=== PATIENT | male | born 1965 | race Caucasian/White ===

== ENCOUNTER 2018-10-15 19:54 | Observation (INO) ==
[2018-10-15] MEDS ORDERED: ASPIRIN PO ONE (20:01)
[2018-10-15 20:18] LABS: BASO# 0.02 X1000 (0.0-0.2); BASO% 0.3 % (0.0-0.8); EOS# 0.16 X1000 (0.0-0.7); EOS% 2.4 % (0.0-10.0); HEMOGLOBIN 14.3 g/dL (14.0-18.0); IMM GRAN# 0.02 X1000 (0.0-0.04); IMM GRAN% 0.3 % (0.0-0.5); LYMPH# 2.98 X1000 (1.2-3.4); LYMPH% 44.4 % (20.5-51.1); MCH 30.4 PG (27-31); MCV 89.4 FL (81-99); MONO# 0.42 X1000 (0.11-0.59); MONO% 6.3 % (1.7-9.3); MPV 9.8 FL (7.4-10.4); NEUT# 3.11 X1000 (1.4-6.5); NEUT% 46.3 % (42.2-75.2); PLT 158 X1000 (130-400); RDW 12.9 % (11.5-14.5); WBC 6.71 X1000 (4.8-10.8)
[2018-10-15 20:45] LABS: AGAP 12; ALBUMIN 4.1 g/dL (3.5-5.0); ALKALINE PHOSPHATASE 76 U/L (32-122); BUN 13 mg/dL (8-22); CALCIUM 8.8 mg/dL (8.8-10.2); CHLORIDE 106 mmol/L (98-107); COSMO 284; CREATININE 0.7 mg/dL (0.7-1.2); ESTIMATED GFR > 60; GLUCOSE 138 mg/dL (70-104); GOT 18 U/L (10-34); GPT 37 U/L (10-44); POTASSIUM 3.6 mmol/L (3.5-5.1); SODIUM 141 mmol/L (136-145); TCO2 23 mmol/L (25-35); TOTAL PROTEIN 7.1 g/dL (6.3-8.3)
--- NOTE | 2018-10-15 20:51 | Diag Imaging Result Doc PS360 ---
EXAM: CHEST-2 VIEWS INDICATION: chest pain TECHNIQUE: 2 views COMPARISON: 12/12/2016 FINDINGS: The lungs are grossly clear. There is no discrete pleural fluid collection or pneumothorax. The cardiomediastinal silhouette and central vasculature are grossly unremarkable. IMPRESSION: No evidence of acute pathology by plain radiograph. Electronically signed by Donal Briscoe 10/15/2018 8:48 PM
[2018-10-15 21:56] LABS: I-STAT CREATININE 0.8 mg/dL (0.6-1.3)
--- NOTE | 2018-10-15 21:57 | Diag Imaging Result Doc PS360 ---
EXAM: CT ANGIOGRM PULMONARY ARTERIES INDICATION: elevated D dimer TECHNIQUE: This exam was performed using automated exposure control, adjustment of mA or kV according to patient size, and/or use of iterative reconstruction technique. COMPARISON: None. FINDINGS: The contrast bolus is suboptimal. The aorta is better opacified than the pulmonary arteries. This may decrease sensitivity for detection of small pulmonary emboli in distal branches. However, no discrete filling defects are identified to indicate pulmonary embolism on this study. There is no evidence of aortic dissection or aneurysm. There is no cardiomegaly. There is no evidence of significant mediastinal or hilar lymphadenopathy. There is a 1 cm noncalcified nodule at the left lung apex. It is nonspecific. It could represent an inflammatory nodule. There appears to be scarring in the region and this could also represent nodular scarring. However, follow-up based on Fleischner Society criteria with an initial CT in 3 months is recommended. The lungs are clear, otherwise. There is no airspace consolidation. There are no pleural fluid collections and no pneumothorax. Limited views of the upper abdomen reveals mild hepatic steatosis. The upper abdomen is grossly unremarkable, otherwise. IMPRESSION: 1.Nonspecific 1 cm noncalcified nodule at the left lung apex. Follow-up based on Fleischner Society criteria is recommended. 2.Suboptimal pulmonary artery contrast bolus. However, no discrete filling defect to indicate pulmonary embolism are identified as imaged. Electronically signed by Donal Briscoe 10/15/2018 9:55 PM
--- NOTE | 2018-10-15 23:35 | EKG Report ---
Test Performed on : 10/15/2018 8:03:07 PM Test Reason : chest pain Blood Pressure : / mmHG Vent. Rate : 090 BPM Atrial Rate : 090 BPM P-R Int : 154 ms QRS Dur : 090 ms QT Int : 350 ms P-R-T Axes : 048 028 019 degrees QTc Int : 428 ms Normal sinus rhythm. Possible Left atrial enlargement Nonspecific ST abnormality Abnormal ECG When compared with ECG of 24-JUN-2007 00:30, ST now depressed in Anterior leads Unconfirmed Result
--- NOTE | 2018-10-15 23:35 | EKG Report ---
Test Performed on : 10/15/2018 11:14:03 PM Test Reason : sp Blood Pressure : / mmHG Vent. Rate : 079 BPM Atrial Rate : 079 BPM P-R Int : 160 ms QRS Dur : 088 ms QT Int : 372 ms P-R-T Axes : 051 009 -22 degrees QTc Int : 426 ms Normal sinus rhythm. Possible Left atrial enlargement ST & T wave abnormality, consider anterior ischemia Abnormal ECG When compared with ECG of 15-OCT-2018 20:03, (Unconfirmed) T wave inversion more evident in Inferior leads T wave inversion now evident in Anterior leads Unconfirmed Result
[2018-10-16] MEDS ORDERED: LOVENOX 1 MG/KG SUBQ ONE (00:40)
[2018-10-16] MEDS ORDERED: LOVENOX ONE (00:44)
[2018-10-16] MEDS ORDERED: LOVENOX SUBQ ONE (00:46)
--- NOTE | 2018-10-16 00:47 | PROVIDER DOCUMENTATION ---
This chart was entered by Sarahy Macdonald Scribe, acting as scribe for Norah Easton MD. HPI-Chest Pain - General Chief Complaint: Chest Pain Stated Complaint: CHEST PAIN Time Seen by Provider: 10/15/18 20:08 Source: patient Allergies/Adverse Reactions: Patient Allergies Allergy/AdvReac Type Severity Reaction Status Date / Time No Known Allergies Allergy Verified 04/18/17 12:03 Home Medications: Home Medication List Medication Instructions Recorded Confirmed Last Taken Type Diclofenac Sodium 1 tab PO BID 12/11/16 09/23/18 09/23/18 08:00 History Hydrocodone/Acetaminophen [[place] 1 ea PO Q6H PRN #15 tab 09/19/18 09/23/18 09/23/18 11:00 Rx 10-325 Tablet] Ondansetron Odt [Zofran 4 mg Odt] 4 mg PO Q6H PRN PRN #20 tab 09/19/18 09/23/18 Unknown Rx Tamsulosin [Flomax] 0.4 mg PO BID #20 cap 09/19/18 09/23/18 09/23/18 08:00 Rx Hydrocodone/Acetaminophen [[place] 1 ea PO Q4H PRN PRN #10 tab 09/23/18 Unknown Rx 7.5-325 Tablet] Oxybutynin [Ditropan] 1 - 2 tab PO TID #15 tab 09/23/18 Unknown Rx - History of Present Illness-CP Nature of Presenting Problem: 53 y/o male presents to ED with L sided chest pain radiating into neck and jaw and diaphoresis onset 3 weeks ago and worsening today. Pt reports he had a normal EKG in office with PCP recently. Pt states he had episodes of similar pain a few months ago. Pt reports breathing exacerbates his pain. Pt states he has family hx heart disease. Pt is alert and oriented. Location: reports: other (L sided) Chest Pain Radiation: reports: jaw, neck Quality of Pain: reports: burning Severity in ED: moderate Onset/Duration: other (3 weeks ago) Timing: still present, getting worse Context/Activities at Onset: reports: none Modifying Factors: worse with: palpation Associated Symptoms: reports: diaphoresis Nitro Today/Relief: no nitro taken today Aspirin Treatment Today: 325 mg x 1, provided by ED Prior Chest Pain/Cardiac Workup: reports: other (EKG with PCP) Similar Symptoms Previously?: Yes Recently Seen Here or By Another Healthcare Provider: No Review of Systems - Adult - REVIEW OF SYSTEMS - ADULT Constitutional: denies: chills, fever Eyes: reports: no symptoms reported Ears, Nose, Mouth & Throat: reports: no symptoms reported Cardiovascular: reports: chest pain. denies: palpitations Respiratory: denies: cough, shortness of breath Gastrointestinal: denies: abdominal pain, diarrhea, nausea, vomiting Genitourinary: reports: no symptoms reported Musculoskeletal: denies: back pain, joint pain Integumentary: reports: other (diaphoresis). denies: hives Neurological: denies: dizziness/vertigo, seizure Psychiatric: reports: no symptoms reported Endocrine: reports: no symptoms reported Hematologic/Lymphatic: reports: no symptoms reported Allergic/Immunologic: reports: no symptoms reported All Other Systems: Reviewed and Negative Past History - Adult - PAST MEDICAL HISTORY-ADULT Review of Records: reports: Old Records Reviewed, Nursing Assessment Review, Medications Reviewed Major Childhood Illnesses: reports: denies history Cardiovascular: reports: denies history Respiratory: reports: denies history, sleep apnea Gastrointestinal: reports: denies history Genitourinary: reports: denies history, kidney stones Musculoskeletal: reports: arthritis, chronic pain, fibromyalgia, other (SCIATICA.) Neurological: reports: denies history Psychiatric: reports: denies history Endocrine/Immune: reports: denies history Other Conditions: reports: denies history - PRIOR SURGERIES/PROCEDURES Surgical/Procedure History: reports: orthopedic (extremity) (shoulder; L knee) - IMMUNIZATION STATUS Childhood Immunizations: See Nurse Assessment Flu Vaccine: See Nurse Assessment - FAMILY HISTORY Family History: CAD over 55 yo, CAD under 55yo - SOCIAL HISTORY Smoking: non-smoker Substance Use: none/never Alcohol Use Frequency: never Living Situation: family Physical Exam-General - PHYSICAL EXAM-ADULT Initial Vital Signs Reviewed: Yes - CONSTITUTIONAL General Appearance: appears well, alert, no apparent distress - EYES Eyes: PERRL/EOMI, pink conjunctivae - HEAD, EARS, NOSE, MOUTH & THROAT HENMT: normocephalic/atraumatic, moist mucous membranes, normal ENT inspection - NECK Neck: non-tender, full range of motion - RESPIRATORY Respiratory: lungs clear, normal breath sounds, other (L sided anterior chest tenderness) - CARDIOVASCULAR Cardiovascular: normal peripheral pulses, regular rate, rhythm - GASTROINTESTINAL (ABDOMEN) Abdominal Exam: normal bowel sounds, non tender, soft - MUSCULOSKELETAL Back Exam: normal inspection, no CVA tenderness Extremity: normal range of motion, non-tender, normal gait - SKIN Integumentary: normal color, warm/dry - NEUROLOGIC Neurologic: grossly normal - PSYCHIATRIC Psych/Mental Status: normal mood/affect, normal thought content, normal thought process - HEART Score HEART Score: History: Slightly Suspicious HEART Score: ECG: Normal HEART Score: Age: 45-65 Years HEART Score: Risk Factors for Atherosclerotic Disease: No Risk Factors Known HEART Score: Troponin: < or = Normal Limit Total HEART Score:: 1 Progress - PLAN OF CARE/RESULTS Progress/Plan/Lab Results: Vital Signs - 8 hr 10/15/18 19:56 10/15/18 20:51 10/15/18 21:00 Temperature 98 F Pulse Rate 96 H 86 87 Respiratory Rate 18 24 24 Blood Pressure 146/88 133/75 134/80 O2 Sat by Pulse Oximetry 96 94 L 96 10/15/18 22:00 10/15/18 22:30 10/15/18 23:00 Temperature Pulse Rate 74 81 76 Respiratory Rate 24 22 26 H Blood Pressure 140/93 139/78 128/73 O2 Sat by Pulse Oximetry 93 L 91 L 95 10/16/18 00:16 Temperature Pulse Rate 84 Respiratory Rate 18 Blood Pressure 140/93 O2 Sat by Pulse Oximetry 95 Laboratory Results - last 24 hr 10/15/18 10/15/18 10/15/18 20:09 20:09 20:09 WBC 6.71 RBC 4.70 Hgb 14.3 Hct 42.0 MCV 89.4 MCH 30.4 MCHC 34.0 RDW Std Deviation 12.9 Plt Count 158 MPV 9.8 Immature Gran % (Auto) 0.3 Neut % (Auto) 46.3 Lymph % (Auto) 44.4 Fallon % (Auto) 6.3 Eos % (Auto) 2.4 Baso % (Auto) 0.3 Immature Gran # (Auto) 0.02 Neut # (Auto) 3.11 Lymph # (Auto) 2.98 Fallon # (Auto) 0.42 Eos # (Auto) 0.16 Baso # (Auto) 0.02 PTT (Actin FS) D-Dimer, Quantitative Sodium Potassium Chloride Carbon Dioxide Anion Gap BUN POC Venous BUN Creatinine POC Venous Creatinine Estimated GFR/1.73 m2 BUN/Creatinine Ratio Glucose Calculated Osmolality Calcium Magnesium Total Bilirubin AST ALT Alkaline Phosphatase Creatine Kinase 99 Troponin T < 0.010 Gld-Y-Hmwwipkirfm Pept Total Protein Albumin Globulin Albumin/Globulin Ratio 10/15/18 10/15/18 10/15/18 20:09 20:09 20:09 WBC RBC Hgb Hct MCV MCH MCHC RDW Std Deviation Plt Count MPV Immature Gran % (Auto) Neut % (Auto) Lymph % (Auto) Fallon % (Auto) Eos % (Auto) Baso % (Auto) Immature Gran # (Auto) Neut # (Auto) Lymph # (Auto) Fallon # (Auto) Eos # (Auto) Baso # (Auto) PTT (Actin FS) D-Dimer, Quantitative 0.65 H Sodium 141 Potassium 3.6 Chloride 106 Carbon Dioxide 23 L Anion Gap 12 BUN 13 POC Venous BUN Creatinine 0.7 POC Venous Creatinine Estimated GFR/1.73 m2 > 60 BUN/Creatinine Ratio 19 Glucose 138 H Calculated Osmolality 284 Calcium 8.8 Magnesium 2.0 Total Bilirubin 0.30 AST 18 ALT 37 Alkaline Phosphatase 76 Creatine Kinase Troponin T Wwr-U-Cwxcxtdmrgk Pept 111 Total Protein 7.1 Albumin 4.1 Globulin 3.0 Albumin/Globulin Ratio 1.0 10/15/18 10/15/18 10/15/18 20:09 20:23 23:00 WBC RBC Hgb Hct MCV MCH MCHC RDW Std Deviation Plt Count MPV Immature Gran % (Auto) Neut % (Auto) Lymph % (Auto) Fallon % (Auto) Eos % (Auto) Baso % (Auto) Immature Gran # (Auto) Neut # (Auto) Lymph # (Auto) Fallon # (Auto) Eos # (Auto) Baso # (Auto) PTT (Actin FS) 26.9 D-Dimer, Quantitative Sodium Potassium Chloride Carbon Dioxide Anion Gap BUN POC Venous BUN 14 Creatinine POC Venous Creatinine 0.8 Estimated GFR/1.73 m2 BUN/Creatinine Ratio Glucose Calculated Osmolality Calcium Magnesium Total Bilirubin AST ALT Alkaline Phosphatase Creatine Kinase 86 Troponin T Zlv-C-Msliladnloq Pept Total Protein Albumin Globulin Albumin/Globulin Ratio 10/15/18 23:00 WBC RBC Hgb Hct MCV MCH MCHC RDW Std Deviation Plt Count MPV Immature Gran % (Auto) Neut % (Auto) Lymph % (Auto) Fallon % (Auto) Eos % (Auto) Baso % (Auto) Immature Gran # (Auto) Neut # (Auto) Lymph # (Auto) Fallon # (Auto) Eos # (Auto) Baso # (Auto) PTT (Actin FS) D-Dimer, Quantitative Sodium Potassium Chloride Carbon Dioxide Anion Gap BUN POC Venous BUN Creatinine POC Venous Creatinine Estimated GFR/1.73 m2 BUN/Creatinine Ratio Glucose Calculated Osmolality Calcium Magnesium Total Bilirubin AST ALT Alkaline Phosphatase Creatine Kinase Troponin T < 0.010 Rpx-L-Hoanzpjwijr Pept Total Protein Albumin Globulin Albumin/Globulin Ratio Orders Category Date Time Status Admit - [facility] Routine AdmDCTranf 10/16/18 00:38 Active CHEST-2 VIEWS [RAD] Stat Exams 10/15/18 20:[address] ANGIOGRM PULMONARY ARTERIES [CT] Stat Exams 10/15/18 20:54 Completed CBC WITH DIFF [HEME] Stat Lab 10/15/18 20:09 Completed CK PROFILE [SP CHEM] Stat Lab 10/15/18 20:09 Completed CK TOTAL [CHEM] Stat Lab 10/15/18 23:00 Completed COMPREHENSIVE METABOLIC PANEL [CHEM] Stat Lab 10/15/18 20:09 Completed D-DIMER [COAG] Stat Lab 10/15/18 20:09 Completed I-STAT BUN-CREAT [RESP] Routine Lab 10/15/18 20:23 Completed MAGNESIUM [CHEM] Stat Lab 10/15/18 20:09 Completed PRO B-NATRIURETIC PEPTIDE Stat Lab 10/15/18 20:09 Completed PTT [COAG] Stat Lab 10/15/18 20:09 Completed TROPONIN T Stat Lab 10/15/18 20:09 Completed TROPONIN T Stat Lab 10/15/18 23:00 Completed Aspirin Med 10/15/18 20:01 Discontinued 325 mg PO NOW ONE Enoxaparin 1 mg/kg [Lovenox 1 mg/kg] Med 10/16/18 00:40 Discontinued 1 each SUBQ NOW ONE EKG [EKG] NOW Ther 10/15/18 22:55 Draft EKG [EKG] Stat Ther 10/15/18 20:01 Draft Transfer/Admit Order [TRANSFER] Routine Transfer 10/16/18 00:39 Ordered Result Diagrams: 10/15/18 20:09 10/15/18 20:09 - EKG 1 Time of EKG reading by physician:: 20:03 EKG Read and Signed by:: Norah Easton EKG Interpretation (*Must complete 3 of following elements*): Abnormal Rate: 90 Rhythm: NSR Perkins: normal QRS: other (possible L atrial enlargement) OR Interval: normal ST Wave: non-specific ST changes 2 Time of EKG reading by physician:: 23:14 EKG Read and Signed by:: Norah Easton EKG Interpretation (*Must complete 3 of following elements*): Abnormal Rate: 79 Rhythm: NSR Perkins: normal QRS: other (possible L atrial enlargement) OR Interval: normal ST Wave: non-specific ST changes (consider anterior ischemia) Comments: T wave inversion V2-V5, III, aVF. New from previous EKG. -Dr. Easton - XRAY 1 XRAY Study: Chest Impression: Normal (FINDINGS: The lungs are grossly clear. There is no discrete pleural fluid collection or pneumothorax. The cardiomediastinal silhouette and central vasculature are grossly unremarkable. IMPRESSION: No evidence of acute pathology by plain radiograph. Electronically signed by Donal Briscoe 10/15/2018 8:48 PM) - CT/MRI 1 CT Study: other (Pulmonary Arteriogram) Impression: Abnormal (FINDINGS: The contrast bolus is suboptimal. The aorta is better opacified than the pulmonary arteries. This may decrease sensitivity for detection of small pulmonary emboli in distal branches. However, no discrete filling defects are identified to indicate pulmonary embolism on this study. There is no evidence of aortic dissection or aneurysm. There is no cardiomegaly. There is no evidence of significant mediastinal or hilar lymphadenopathy. There is a 1 cm noncalcified nodule at the left lung apex. It is nonspecific. It could represent an inflammatory nodule. There appears to be scarring in the region and this could also represent nodular scarring. However, follow-up based on Fleischner Society criteria with an initial CT in 3 months is recommended. The lungs are clear, otherwise. There is no airspace consolidation. There are no pleural fluid collections and no pneumothorax. Limited views of the upper abdomen reveals mild hepatic steatosis. The upper abdomen is grossly unremarkable, otherwise. IMPRESSION: 1.Nonspecific 1 cm noncalcified nodule at the left lung apex. Follow-up based on Fleischner Society criteria is recommended. 2.Suboptimal pulmonary artery contrast bolus. However, no discrete filling defect to indicate pulmonary embolism are identified as imaged. Electronically signed by Donal Briscoe 10/15/2018 9:55 PM) 2 CT Study: other (CTA) Impression: Abnormal (1. No evidence of pulomary embolism. 2. Left upper lobe pulmonary nodules measuring 9 mm and 5 mm. Recommend comparison with prior imaging if available. If more available, consider follow-up imaging in 3 months, PET/CT or direct tissue sampling. 3. Stable left adrenal gland angiomyolipoma.) - CONSULTS/PCP/HOSPITALIST Notification #1 *Consult/PCP/Hospitalist*: Dr. Trevino Time Discussed: 00:30 Reason/Comments: new T-wave inversion Consult Disposition: Admit (to [facility]; Dr. Trevino will consult) #2 Consult: Dr. Ribeiro Time Discussed: 00:31 Reason/Comments: new T-wave inversion Consult Disposition: Admit (to [facility]) Departure - Departure Date of Disposition Decision: 10/16/18 Time of Disposition Decision: 00:31 DIAGNOSIS: Chest pain, Abnormal finding on EKG Disposition: ADMITTED INPATIENT 09 Certified Medical Emergency: Emergent Condition: Stable Additional Freetext Instructions: ED Follow Up Instructions: You have been treated by a care provider in the Emergency Department. These instructions are being provided to you so you can have an understanding of how to care for yourself upon discharge. Upon discharge from the Emergency Department, you are responsible for making arrangements for follow-up care by a physician of your choice. Take all prescribed medications as directed. Return to the Emergency Department immediately for any new or worsening symptoms. You may call the Physician Referral phone number at [phone] to obtain a l ist of Physicians who are taking new patients. Referrals and Follow-Ups: Saturnino Luna DO [Primary Care Provider] - - Critical Care Note This patient required my direct & personal management of CC.: No Attestation - Physician/ CECE Attestation Patient care was provided by Advanced Practice Provider:: No The physician spent face to face time with patient:: Yes Advanced Practice Provider documentation review:: Supervising physician onsite and consulted in the evaluation and care of this patient. The physician did have a face to face encounter with the patient. This chart was documented by the indicated scribe, (Sarahy Macdonald Scribe) and accurately reflects the services I performed and decisions made by me, Norah Easton MD, as attested by the provider's signature.
[2018-10-16 05:43] LABS: BASO# 0.02 X1000 (0.0-0.2); BASO% 0.3 % (0.0-0.8); EOS% 1.7 % (0.0-10.0); HEMOGLOBIN 14.1 g/dL (14.0-18.0); IMM GRAN# 0.02 X1000 (0.0-0.04); IMM GRAN% 0.3 % (0.0-0.5); LYMPH# 2.82 X1000 (1.2-3.4); MCH 30.2 PG (27-31); MCHC 33.6 g/dL (33-37); MCV 89.9 FL (81-99); MONO# 0.34 X1000 (0.11-0.59); MONO% 5.7 % (1.7-9.3); MPV 9.8 FL (7.4-10.4); PLT 140 X1000 (130-400); RBC 4.67 XMIL (4.7-6.1); RDW 13.3 % (11.5-14.5)
[2018-10-16] MEDS ORDERED: ZOFRAN IV PRN (06:06)
[2018-10-16 06:08] LABS: AGAP 9; BUN 15 mg/dL (8-22); CALCIUM 9.2 mg/dL (8.8-10.2); CHLORIDE 108 mmol/L (98-107); COSMO 285; CREATININE 0.6 mg/dL (0.7-1.2); ESTIMATED GFR > 60; GLUCOSE 109 mg/dL (70-104); MAGNESIUM 2.3 mg/dL (1.5-2.7); POTASSIUM 4.1 mmol/L (3.5-5.1); SODIUM 142 mmol/L (136-145); TCO2 25 mmol/L (25-35)
[2018-10-16] MEDS ORDERED: NITROGLYCERIN TOP PRN (06:10)
[2018-10-16] MEDS ORDERED: MORPHINE IV PRN (06:10)
[2018-10-16] MEDS ORDERED: TYLENOL PO PRN (06:10)
[2018-10-16] MEDS ORDERED: G.I. COCKTAIL PO ONE (06:13)
[2018-10-16] MEDS ORDERED: NS 1,000 ML IV SCH (06:15)
[2018-10-16] MEDS: PRILOSEC PO SCH (06:27)
--- NOTE | 2018-10-16 07:05 | HISTORY AND PHYSICAL ---
PRIMARY CARE PROVIDERS: Dr. Saturnino Luna. CHIEF COMPLAINT: Chest pain. HISTORY OF PRESENT ILLNESS: Mr. Godwin is a 53-year-old male with a past medical history notable for sleep apnea and a recent surgery for kidney stones approximately 2 3 weeks ago. The patient states for a period of 5 to 6 weeks now that he has been having intermittent chest pain. He states in his left chest is a burning type pain in nature. It does radiate to his left shoulder, left arm, neck and jaw. The patient states this has been occurring when he exerted himself. He states that he does play tennis and this is normally when he notices it occurring. Though he states that yesterday at approximately 8 a.m. after eating dinner the pain did occur while he was at rest. He states that the burning pain feels like heartburn though he does not think that is what it is. It began in his left chest as previous episode and radiated to jaw, neck, left shoulder and left arm, though at this time he did have associated symptoms of diaphoresis. He did present to the ER at [facility] for further evaluation. In the ER initial EKG showed sinus rhythm with a possible left atrial enlargement at a rate of 90. There was not any ST-elevation, depression or T-wave abnormality noted. Though upon repeat EKG there is now new T-wave inversion noted in V3, V4 and V5 and 6, as well as AVF. The patient states that his chest pain has improved though is still there at a 2-3 at this time. I did give him 325 mg aspirin as well as a 1 mg/kg subcutaneous dose of Lovenox. Given his EKG changes they did contact Dr. Trevino, who recommended he be transferred to [facility] for admission. Also in the ER given his reported symptoms they did do further radiology studies of chest x-ray which showed no acute pathology, and given that he did have a very slightly elevated D- dimer of 0.[address] a CT angiogram pulmonary arteries which showed nonspecific 1 cm noncalcified nodule in the left lung apex, though there was is no discrete filling defect to indicate pulmonary embolism identified. The patient's cardiac enzymes, with initial as well as repeat have been negative at this time. All other labs were pretty unremarkable. He will be placed inpatient for admission. REVIEW OF SYSTEMS: A 14 point review of systems was conducted with the patient. All were negative except for pertinent positives mentioned above in the HPI. PAST MEDICAL HISTORY: 1. Sleep apnea. 2. Kidney stones. 3. Arthritis. PAST SURGICAL HISTORY: 1. Recent procedure for kidney stone removal. 2. Low back surgery. 3. Right knee surgery. 4. Left knee surgery. 5. Right shoulder surgery. SOCIAL HISTORY: The patient denies any tobacco, alcohol, or illicit drug use. FAMILY HISTORY: Positive for his mother had a history of, what I understand has an eye disorder from what I believe is a pemphigoid. His father had a history of myocardial infarction and did have to have a CABG at age 58. He also has a history of prostate cancer. His sister has a questionable seizure disorder. ALLERGIES: Patient has no known allergies. HOME MEDICATIONS: Diclofenac sodium 75 mg p.o. b.i.d. DIAGNOSTIC DATA: White blood cell count of 6710, hemoglobin 14.3, hematocrit 42. Platelet count is 158,000. PTT is 26.9. D-dimer 0.65. Sodium 141, potassium 3.6, chloride 106, serum bicarb is 23, BUN 13, creatinine 0.7, glucose 138, calcium 8.8, magnesium 2. Liver function tests within normal limits. CK 86, troponin 1st and 2nd less than 0.01. EKG as previously mentioned, initially did show normal sinus rhythm with possible left atrial enlargement, though upon a repeat approximately 3 hours later, did show new T-wave inversion in leads 3, 4, 5, 6 and AVF. Chest x-ray showed no acute abnormalities per Radiology. CT angiogram pulmonary arteries did show nonspecific 1 cm noncalcified nodule at the left lung apex. Followup based on the Fleischner Society criteria is recommended. Suboptimal pulmonary artery contrast bolus, though there was no discrete filling defect to indicate pulmonary embolism identified. PHYSICAL EXAMINATION: VITAL SIGNS: Temperature 97.6 degrees, heart rate 82, respirations 18, blood pressure 136/90, oxygen saturation is 100% on room air. GENERAL: Mr. Godwin is a pleasant 53-year-old male who is resting in the inpatient bed with his eyes closed. He was easily arousable with verbal stimulation. Once awake, he was alert and oriented to person, place, time, situation and was able to answer questions appropriately. HEENT: Head is atraumatic, normocephalic. Pupils equal, round, reactive to light, were 3 mm bilateral and brisk. Oral mucosa is moist. Oropharynx is clear. NECK: Trachea is midline. CARDIOVASCULAR: Patient has S1-S2 present. No murmurs, gallops, or rubs appreciated with a regular rate and rhythm. PULMONARY: Patient has symmetrical chest expansion bilaterally. Lung sounds are clear to auscultation bilateral full oquendo. ABDOMEN: Soft. Does not appear to be distended. The patient does have a protuberant abdomen noted. The patient did report some slight tenderness upon palpation in the right lower quadrant. No rebound tenderness noted. Bowel sounds are present in all 4 quadrants. Normoactive. The patient has denied any chest pain. EXTREMITIES: No cyanosis, clubbing, or edema noted. Pulse motor and sensory were intact in all extremities. Radial pulses and pedal pulses were 2+ bilaterally. INTEGUMENTARY: The patient's skin is pink, warm, dry. NEUROLOGICAL: Patient is alert and oriented to person, place, time, and situation. He is able to move all extremities. There do not appear to be any focal neurological deficits noted. ASSESSMENT AND PLAN: 1. Chest pain, rule out acute coronary syndrome. For treatment of this the patient has been previously given aspirin in the ER. We will do a daily aspirin as well. He was given a 1 mg/kg dose of Lovenox in the ER. We have continued at this time. We also have placed orders for p.r.n. morphine and nitroglycerin for his chest pain. The patient is still describing that he is having left-sided chest pain. It is burning in nature at a 2 to 3/10 at this time. We will give him a dose of GI cocktail just to see if this will help. We will continue with a series of cardiac enzymes. We have ordered for a lipid profile as well. We will repeat an EKG this morning and an echocardiogram. We have placed a consult with Dr. Trevino with Cardiology and will await their evaluation and further recommendations for management. The patient will be NPO until evaluated by cardiology. 2. Sleep apnea. The patient is going to bring his CPAP machine from home. We have placed an order for this to be placed on him nightly. 3. Findings of a 1 cm noncalcified nodule at the left lung apex. This was found on a angiogram of the pulmonary arteries. It is recommended by the radiologist this be followed up based on the Fleischner Society criteria. 4. Deep vein thrombosis prophylaxis we provided previously mentioned Lovenox. 5. The patient has been placed on CIC with telemetry for close monitoring. He will have frequent vital signs. We will do strict intake and output and daily weights. Further orders and recommendations pending hospital course, diagnostic studies, and physician evaluation. Dictated by PHU Jones for Delmar Ribeiro MD cc: Delmar Ribeiro MD
[2018-10-16] MEDS ORDERED: ASPIRIN PO SCH (09:00)
--- NOTE | 2018-10-16 09:17 | PROGRESS NOTE ---
DATE: 10/16/2018 SUBJECTIVE: The patient was admitted this morning. He is a patient of Dr. Luna. Past medical history of sleep apnea, recent surgery for kidney stones approximately 2 to 3 weeks ago. The patient had a period of 5 to 6 weeks now that he has been having intermittent chest pain. States that his left chest was burning-type pain. It radiated to his left shoulder, left arm, neck, and jaw. The patient states that it has been occurring when he exerts himself. He notes that he does play tennis, and this is normally when he notices that it is occurring. Approximately 8 a.m. after eating dinner, pain occurred at rest, burning pain. He claims that he feels this is probably heartburn, that is what he feels it is. He had periods of radiating to his jaw and his left shoulder and left arm. EKG showed sinus rhythm, possible atrial enlargement, rate was 90. There was no significant ST-segment changes or depression in T-wave by report, but then they discovered a new T-wave inversion noted in V3, V4, V5, as well as V6 and aVF. The patient states that it has improved since he arrived at the hospital, and ranked it about a 2 or 3/10. He was given some aspirin, and started on 1 mg/kg subcu of Lovenox. EKG changes were reported. Dr. Trevino notified. He had an elevated D-dimer of 0.65. Performed a CT angiogram that showed a 1 cm nonspecific nodule in the left lung apex. There were no discrete filling defects, no sign of thrombus or embolism. Today, he was getting his echocardiogram. He states the shoulder still bothers him. He has remained afebrile, temperature 98.1 degrees, pulse 70, respirations 14, blood pressure 133/73. He was breathing comfortably. No sign of distress. I told him I would come back and see him when he finished his echocardiogram. IMAGING AND LABORATORY DATA: Lab reviewed. White count 6000, hematocrit 42, platelet count 140,000. Sodium 142, potassium 4.1, chloride 108, BUN 14, creatinine 0.6, blood sugar 109. Troponin less than 0.01. CK is 72. Cholesterol 200, HDL was 45, and LDL was 142. Chest x-ray: No evidence of acute pathology. No sign of infiltrate. Mediastinum unremarkable. As reported, pulmonary angiogram: There is a nonspecific 1 cm noncalcified nodule in the left lung apex. Follow up based on the Fleischner Society criteria recommended, so probably needs a followup x-ray in 3 months. Suboptimal pulmonary artery contrast bolus, but no discrete filling defects, no pulmonary embolism. ASSESSMENT AND PLAN: Chest pain, atypical. Check an echocardiogram. Serial cardiac enzymes unremarkable. Electrocardiogram nonspecific. Cardiology will evaluate as well. Normal saline going at 75 mL an hour. Getting aspirin 325 mg daily. He got one dose of Lovenox last night, starting with 80 mg subcutaneously every 12 hours, and he continues to get that. cc: Marcel Alegre MD
--- NOTE | 2018-10-16 10:45 | CARDIOLOGY CONSULTATION ---
DATE: 10/16/2018 CHIEF COMPLAINT: Chest pain. HISTORY OF PRESENT ILLNESS: Mr. Ruby is a 53-year-old, white male with a history of sleep apnea, nephrolithiasis as well as the back pain. He has been having 6 weeks of chest pain that has been intermittent, burning in nature and located in the upper chest. At times there is a component that is related to exertion but other times and especially last night it was not and occurred around the time of eating. He had a brief it diaphoretic episode yesterday but this did not last very long. He had no associated shortness of breath. No orthopnea. PAST MEDICAL HISTORY: 1. Sleep apnea. 2. Nephrolithiasis. 3. Obesity. 4. Back pain status post operation. SOCIAL HISTORY: Does not smoke. He is in . Patient is active and plays a relatively high level tennis. FAMILY HISTORY: Father apparently had bypass in his late 50s. He did smoke. REVIEW OF SYSTEMS: A 10 system review of systems is negative except for those things mentioned in HPI. PHYSICAL EXAMINATION: Vital Signs: The patient is afebrile. His heart rate is 71. Blood pressure 133/73. General: He is in no acute distress. HEENT: Oropharynx is moist. Normal dentition. Eye examination is pink conjunctivae. White sclerae. Neck: Examination shows no obvious thyromegaly or thyroid tenderness. Cardiovascular: He sounds to be in a regular rate and rhythm. No murmurs. No S3. He has no lower extremity edema. He has no carotid bruits. Chest: Clear bilaterally. He has no increased work of breathing. Abdomen: Soft, nontender, nondistended. No obvious organomegaly. Skin: Warm and dry throughout without any rashes. Neurological: He is moving all extremities well. He has no lateralizing deficits. Psychiatric: He is alert, oriented, pleasant. He has normal mood and affect. LABORATORY DATA: Pertinent data. His EKG at 20:03 yesterday shows sinus rhythm, rate at 90 beats per minute. He has no will ST-T changes. Subsequent EKG at 23:14 yesterday shows minor T- wave inversions in V3 and V4. No Q-waves. CTA of his chest shows nonspecific 1 cm nodule in the left lung apex. No obvious filling defects. His lab data shows a white count is 6, hematocrit 42, platelet count is 140,000. His sodium is 142, potassium 4.1, BUN is 15 creatinine 0.6. His cardiac enzymes have been negative. His LDL cholesterol is 142 with an HDL of 45. ASSESSMENT: Mr. Godwin is a 53 -year-old male who presented with chest pain. PLAN: He has a ANNIKA risk score of 0. Really his only risk factor is a family history of coronary disease in which his father was a heavy smoker. His lipids get him a 10 year cardiac risk of 4.6% which would not indicate the need for statin therapy. There were no visualized calcifications in his coronary arteries. We will proceed with stress testing. If this is unremarkable, then the patient may be discharged home. cc: Rex Koch MD
[2018-10-16] MEDS ORDERED: LOVENOX SUBQ SCH (12:30)
[2018-10-16] MEDS: PEPCID PO SCH (15:10)
--- NOTE | 2018-10-16 15:23 | Diag Imaging Result Document ---
PROCEDURE NAME: MYOCARDIAL PERF SCAN, STR/REST - 10/16/2018 PROCEDURE PERFORMED: Exercise Cardiolite stress test. DESCRIPTION OF PROCEDURE: The patient exercised on the Av protocol for 7 minutes to a peak heart rate of 155, 91% predicted maximal heart rate achieved, 77% exercise capacity. There was normal blood pressure response to exercise. There were no dysrhythmias noted. There was a [address] depression in leads 2 and 3, and [address]-depression in lead 1 at peak exercise. In addition, [address] depression in leads V4, V5, and V6, diagnostic of ischemia. Cardiolite was injected. Gated SPECT images were obtained in standard views. There were 13.6 mCi of Cardiolite injected for the rest phase and 41 mCi of Cardiolite injected for the stress phase. Gated SPECT images revealed a low-grade, small-sized, reversible defect with significant chest wall attenuation, motion artifact. Left ventricular cavity size was normal. Left ventricular ejection fraction by gated SPECT was 71%. This could represent attenuation defect. CONCLUSIONS: 1. The patient had retrosternal burning chest discomfort on the treadmill. 2. Positive exercise stress electrocardiogram with [address] depression in the inferior leads and the lateral leads, positive for ischemia. 3. Myocardial perfusion images revealed a very small-sized, low-grade defect which is slightly reversible in the left ventricular apex with significant chest wall attenuation and motion artifact. This is likely to represent attenuation defect. 4. Left ventricular ejection fraction by gated SPECT was 71%. cc: MD Rex Colón MD
--- NOTE | 2018-10-16 15:48 | ECHO REPORT ---
ORDER DATE: 10/16/2018 INTERPRETING PHYSICIAN: Alejandro Childers MD ECHOCARDIOGRAPHIC MEASUREMENTS: 1. Interventricular septum 1.1 cm. 2. Left ventricular posterior wall 1.1 cm. 3. Diastolic diameter 5.0 cm. 4. Left atrium 3.5 cm. 5. Aorta 2.8 cm. SUMMARY OF THE 2-DIMENSIONAL IMAGIN. The aortic valve leaflets are trileaflet. 2. Pulmonic valve was normal. 3. Tricuspid valve was normal. 4. Mitral valve was normal. 5. Normal left ventricular cavity size. 6. Estimated ejection fraction of 60%. 7. There is mild mitral regurgitation. 8. Mild tricuspid regurgitation. 9. Peak velocity across the tricuspid valve was 2.2 m/sec. 10. Pulmonary artery systolic pressure of 30 mmHg. 11. Peak velocity across the aortic valve less than 2 m/sec. 12. There is no aortic stenosis or regurgitation. 13. There is no pericardial effusion or obvious intracardiac mass or thrombus seen. cc: Alejandro Childers MD
[2018-10-16] MEDS ORDERED: NORCO-7.5 PO PRN (17:20)
[2018-10-17 05:27] LABS: BASO# 0.02 X1000 (0.0-0.2); BASO% 0.4 % (0.0-0.8); EOS# 0.14 X1000 (0.0-0.7); EOS% 2.7 % (0.0-10.0); HEMATOCRIT 43.3 % (42.0-52.0); HEMOGLOBIN 14.5 g/dL (14.0-18.0); LYMPH# 2.45 X1000 (1.2-3.4); LYMPH% 46.8 % (20.5-51.1); MCH 30.2 PG (27-31); MCHC 33.5 g/dL (33-37); MCV 90.2 FL (81-99); MONO# 0.31 X1000 (0.11-0.59); MONO% 5.9 % (1.7-9.3); MPV 10.4 FL (7.4-10.4); NEUT# 2.31 X1000 (1.4-6.5); NEUT% 44.2 % (42.2-75.2); PLT 140 X1000 (130-400); RDW 13.3 % (11.5-14.5); WBC 5.23 X1000 (4.8-10.8)
[2018-10-17 05:42] LABS: INR 0.86; PROTIME 12.4 Seconds (11.0-16.0)
[2018-10-17 05:45] LABS: AGAP 11; BUN 10 mg/dL (8-22); CALCIUM 8.9 mg/dL (8.8-10.2); CHLORIDE 108 mmol/L (98-107); COSMO 286; CREATININE 0.6 mg/dL (0.7-1.2); ESTIMATED GFR > 60; GLUCOSE 98 mg/dL (70-104); MAGNESIUM 2.3 mg/dL (1.5-2.7); SODIUM 144 mmol/L (136-145); TCO2 25 mmol/L (25-35)
[2018-10-17 07:41] VITALS: BP 139/88
--- NOTE | 2018-10-17 08:02 | EKG Report ---
Test Performed on : 10/17/2018 07:26:07 AM Test Reason : chest pain Blood Pressure : / mmHG Vent. Rate : 064 BPM Atrial Rate : 064 BPM P-R Int : 156 ms QRS Dur : 092 ms QT Int : 384 ms P-R-T Axes : 052 008 -07 degrees QTc Int : 396 ms Normal sinus rhythm. Nonspecific T wave abnormality Abnormal ECG When compared with ECG of 15-OCT-2018 23:14, (Unconfirmed) No significant change was found Confirmed by Terence RICHARDS, Edmundo Duong ([id number]) on 10/18/2018 9:05:39 AM
--- NOTE | 2018-10-17 08:08 | PROGRESS NOTE ---
DATE: 10/17/2018 SUBJECTIVE: Mr. Godwin had a good night. No further chest pain. He is waiting to be transferred to [facility]. He remains afebrile. PHYSICAL EXAMINATION: Temperature 97.8 degrees, pulse 62, respirations 18, blood pressure 139/88. Pupils are equal and round. Lungs are clear in all lung oquendo. Cardiovascular Examination: Regular rhythm and rate without murmur or S3. Abdomen is soft. Skin is warm and dry. Urine output 2900 mL. His right hand had a little swelling, I think from an IV. That has gone during the night. ASSESSMENT AND PLAN: He has ANNIKA risk score of 0, really has only risk factors of family history of coronary artery disease in his father and heavy smoker. His lipids give him a 10 year cardiac risk of 4.6%, which would indicate statin therapy. No visualized calcification in the coronary arteries. He had a stress test though yesterday. He had [address] depression on the inferior leads and the lateral leads, positive for ischemia. Myocardial perfusion images revealed very small size, low-grade defect which is slightly reversible in the left ventricular apex with significant chest wall attenuation and motion artifact, and left ventricular ejection fraction was 71%. [place] the patient needs an arteriogram. I think the plan is to get him to [place]. His echocardiogram with Doppler showed normal left ventricular cavity. Estimated ejection fraction of 60%. Mild tricuspid regurgitation. Mild mitral regurgitation. Pulmonic pressures were 30 mmHg. We will see if we can get her ready go to [place] when they can take him. cc: Marcel Alegre MD
[2018-10-17] MEDS: PEPCID PO SCH (08:13)
[2018-10-17] MEDS: PRILOSEC PO SCH (08:14)
--- NOTE | 2018-10-17 08:24 | DISCHARGE SUMMARY ---
ADMISSION DATE: 10/16/2018 DISCHARGE DATE: 10/17/2018 PRIMARY CARE PHYSICIAN: Dr. Saturnino Luna, DO HISTORY: This is a 53-year-old, male with a past medical history notable for sleep apnea, recent surgery, a kidney stone approximately 2 to 3 weeks ago. The patient had a period of 5 to see 6 weeks now of having intermittent chest pain. He states his left chest has burning-type pain in nature. It does radiate to his left shoulder, left arm, neck and jaw. The patient states that it has been occurring when he exerts himself. States he does play tennis, and normally notices it occurring when he is playing tennis though he states the day before admission about 8:00 in the evening after eating dinner the pain did occur when he was at rest. States that the burning pain feels like heartburn, though he does not think that that is what it is. It begins in his left chest as previous episode and radiated to the jaw and neck, left shoulder and left arm. It was associated with diaphoresis. In the emergency room, EKG showed sinus rhythm, possible left atrial enlargement. Heart rate was 90, and did not show any ST elevation or depression or T-wave abnormality. Though upon repeat EKG, there was a new T-wave inversion noted in the V3 through V6 as well as AVF. The patient states that chest pain had improved, and was about a 2 to 3 at the end of exam on admission. They gave him 325 mg of aspirin. I gave him a dose of Lovenox 1 mg/kg, and he was admitted. The next day he had a myocardial perfusion scan. He had a Doppler as well. Doppler was unremarkable. Estimated ejection fraction of 60%. Normal left ventricular cavity. The valvular function looked good. Then, he underwent myocardial perfusion scan. He had [address] depression in the inferior leads laterally which were positive for ischemia. The myocardial perfusion images revealed a very small size low-grade defect which was slightly reversible in the left ventricular apex with significant chest wall attenuation and motion artifact. His ejection fraction according to a SPECT was 71%. The plan is to transfer him to [place] for heart catheterization and definitive therapy if indicated. DISCHARGE MEDICATIONS: Continue him on his current medicines. He does have osteoarthritis, and I have been holding his nonsteroidal anti-inflammatories. He is getting Tylenol 650 mg p.o. q.6 hours p.r.n. pain, aspirin 81 mg a day, Pepcid 40 mg p.o. daily, [place] 7.5 q.4 hours p.r.n. pain, Toprol-XL 25 mg a day. He has morphine ordered 2 mg q.3 hours p.r.n. pain and Prilosec 20 mg a day. cc: Marcel Alegre MD
[2018-10-17] MEDS ORDERED: ASPIRIN PO SCH (09:00)
[2018-10-17] MEDS ORDERED: TOPROL XL PO SCH (09:00)
== END 2018-10-17 09:10 | disposition short-term general hospital (02) ==
LOC: 3S 19:54 → P.ED 19:54 → SUATTDRO 10-16 02:25
PROVIDERS: ATTEND Emergency Medicine
CPT/HCPCS: 71020; 71046; 71275; 78452; 80048; 80053; 80061; 82550; 82565; 83721; 83735; 83880; 84484; 84520; 85025; 85379; 85610; 85730; 93005; 93010; 93017; 93306; 94799; 96372; 99285; A9270; A9500; J1650; J2270; J7030; Q9967